=== PATIENT | male | born 1955 | race Two or more races ===

== ENCOUNTER 2021-05-27 18:11 | Inpatient (IN) | payer MEDICARE, MEDICAID ==
[~2021-05-27] VITALS: Ht 175.3 cm; Wt 67.2 kg
[2021-05-27 19:23] LABS: Basophils # (auto) 0 10 ^3/uL (0-0.2); Basophils % (auto) 0.4 % (0.0-2.0); Eosinophils # (auto) 0.3 10 ^3/uL (0-0.8); Eosinophils % (auto) 3.4 % (0.0-7.0); Hemoglobin 10.9 g/dL (13.5-17.5); Lymphocytes # (auto) 2.7 10 ^3/uL (0.4-5.4); Mean Corpuscular Hemoglobin 35.7 pg (28.0-32.0); Monocytes % (auto) 10.8 % (0.0-12.0); Neutrophils # (auto) 4.9 10 ^3/uL (1.6-8.6); Neutrophils % (auto) 55.4 % (37.0-80.0); Nucleated Red Blood Cells % 0.1 %; Red Blood Cells 3.05 10^6/uL (4.5-5.90); Red Cell Distribution Width 14.2 % (11.8-14.3); White Blood Cell 8.9 10^3/uL (4.4-10.8)
[2021-05-27 19:32] LABS: Albumin 2.1 g/dL (3.4-5.0); Calcium 7.5 mg/dL (8.5-10.1); Magnesium 1.9 mg/dL (1.6-2.6); Potassium 3.6 mmol/L (3.5-5.1)
[2021-05-27 19:39] LABS: Bilirubin, Total 0.7 mg/dL (0.2-1.0); Total Protein 4.8 g/dL (6.4-8.2)
[2021-05-28] VITALS (7 sets, daily range): BP systolic 87–130; BP diastolic 47–72
[2021-05-28] MEDS ORDERED: ACETAMINOPHEN 500 MG TAB PO ONE (04:00)
[2021-05-28] MEDS ORDERED: CLINDAMYCIN 600MG IV 50 ML IV ONE (04:00)
[2021-05-28 04:37] LABS: Urine Bacteria NONE SEEN /hpf (None Seen); Urine Blood Negative /uL (Negative); Urine Hyaline Cast FEW /lpf (0 - 2); Urine Mucus FEW (None Seen); Urine Specific Gravity 1.019 (1.001-1.035); Urine WBC 1 /hpf (0 - 3)
[2021-05-28] MEDS ORDERED: NITROGLYCERIN 0.4 MG SL TAB SL PRN (05:45)
[2021-05-28] MEDS ORDERED: DOCUSATE SOD 100 MG CAP PO PRN (05:45)
[2021-05-28] MEDS ORDERED: MORPHINE SULFATE INJECTION 2 MG/ML SYRG IV PRN (05:45)
[2021-05-28] MEDS ORDERED: ONDANSETRON HCL 4 MG/2 ML VIAL IV PRN (05:45)
[2021-05-28] MEDS ORDERED: DEXTROSE (50%) 50ML SYRG IV PRN (05:45)
[2021-05-28] MEDS ORDERED: ACETAMINOPHEN 325 MG TAB PO PRN (05:45)
[2021-05-28] MEDS: SODIUM CHLOR 0.9% PF (SALINE LOCK) 10ML VIAL/SYR IV SCH ×4 (06:13→22:12)
[2021-05-28] MEDS: CLINDAMYCIN 600MG IV 50 ML IV SCH ×3 (06:13→22:08)
[2021-05-28] MEDS: HYDROcodone-ACET 5/325MG TAB PO PRN ×2 (06:13→11:32)
[2021-05-28] MEDS: ACCU-CHEK COMFORT CURVE STRIP VI SCH ×4 (07:00→22:00)
[2021-05-28] MEDS: InsuLIN REG 1unit/0.01ml Soln (100units/ml) SC SCH ×3 (07:00→16:58)
[2021-05-28 08:29] LABS: Basophils # (auto) 0 10 ^3/uL (0-0.2); Basophils % (auto) 0.6 % (0.0-2.0); Eosinophils # (auto) 0.3 10 ^3/uL (0-0.8); Eosinophils % (auto) 4.3 % (0.0-7.0); Hemoglobin 10.8 g/dL (13.5-17.5); Lymphocytes # (auto) 2.1 10 ^3/uL (0.4-5.4); Lymphocytes % (auto) 29.1 % (10.0-50.0); Mean Corpuscular Hemoglobin 35.2 pg (28.0-32.0); Mean Corpuscular Hgb Conc. 33.9 g/dL (32.0-36.0); Monocytes # (auto) 0.7 10 ^3/uL (0-1.3); Monocytes % (auto) 9.8 % (0.0-12.0); Neutrophils # (auto) 4.1 10 ^3/uL (1.6-8.6); Neutrophils % (auto) 56.2 % (37.0-80.0); Red Blood Cells 3.07 10^6/uL (4.5-5.90); Red Cell Distribution Width 14.3 % (11.8-14.3); White Blood Cell 7.4 10^3/uL (4.4-10.8)
[2021-05-28 08:43] LABS: INR 1.37 (0.9-1.15); Partial Thromboplastin Time 31.2 sec (23.6-33.0)
[2021-05-28 08:44] LABS: Calcium 7.4 mg/dL (8.5-10.1); Potassium 4.1 mmol/L (3.5-5.1)
[2021-05-28 08:47] LABS: BUN/Creatinine Ratio 8.6; Bilirubin, Total 1.1 mg/dL (0.2-1.0); Total Protein 4.5 g/dL (6.4-8.2)
[2021-05-28] MEDS ORDERED: OME20GT PO (08:57)
[2021-05-28] MEDS ORDERED: GABA-339 PO (08:57)
[2021-05-28] MEDS ORDERED: METO25TA93 PO (08:57)
[2021-05-28] MEDS ORDERED: SIMV-13 PO (08:57)
[2021-05-28] MEDS ORDERED: CHOL20007 PO (08:57)
[2021-05-28] MEDS ORDERED: ONDA-144 PO (08:57)
[2021-05-28] MEDS ORDERED: METF-370 PO (08:57)
[2021-05-28] MEDS ORDERED: FURO1TAB33 PO (08:57)
[2021-05-28] MEDS ORDERED: ALBUAER3 IN (08:57)
[2021-05-28] MEDS ORDERED: LIDO2SOL18 TOP (08:57)
[2021-05-28] MEDS ORDERED: HYDR-4833 PO (08:57)
[2021-05-28] MEDS: HEPARIN SODIUM (PORCINE) 5000 UNITS/ML 1ML VIAL SC SCH ×2 (09:35→22:11)
[2021-05-28] MEDS ORDERED: ZINC SULFATE 220mg CAP or TAB PO SCH (10:00)
[2021-05-28] MEDS ORDERED: ASCORBIC ACID 500 MG TAB PO SCH (10:00)
[2021-05-28] MEDS ORDERED: FAMOTIDINE (10MG/ML) 2ML VL IV SCH (10:00)
[2021-05-28] MEDS ORDERED: MULTIPLE VITAMIN TAB PO SCH (10:00)
[2021-05-28] MEDS ORDERED: cefTRIAXone SOD 1,000 MG VL IV ONE (12:45)
[2021-05-28] MEDS ORDERED: HYDROcodone-ACET 5/325MG TAB PO PRN (13:15)
[2021-05-28] MEDS ORDERED: ALBUTEROL SULF HFA 90MCG INH 200DOSE IN PRN ×2 (13:15→14:00)
[2021-05-28] MEDS ORDERED: diphenhdrAMINE HCL 25 MG CAP PO PRN (13:30)
[2021-05-28] MEDS ORDERED: ALBUTEROL SULF 2.5 MG/0.5ML(0.5%) NEB SOLN NEB PRN (14:00)
[2021-05-28] MEDS ORDERED: cefTRIAXone 1GM/50ML D5W 50 ML IV ONE (14:15)
[2021-05-28] MEDS ORDERED: ONDANSETRON ODT 4 MG TAB PO PRN (15:00)
[2021-05-28] MEDS ORDERED: SODIUM CHLORIDE 0.9% 1,000 ML IV ONE (16:30)
[2021-05-28] MEDS: SODIUM CHLORIDE 0.9% 1,000 ML IV SCH ×2 (18:23→22:09)
[2021-05-28] MEDS ORDERED: InsuLIN REG 1unit/0.01ml Soln (100units/ml) SC SCH (22:00)
[2021-05-28] MEDS ORDERED: ATORVASTATIN 20 MG TAB PO SCH (22:00)
[2021-05-29] MEDS: SODIUM CHLORIDE 0.9% 1,000 ML IV SCH (04:30)
[2021-05-29 05:00] VITALS: BP 148/55
[2021-05-29] MEDS: SODIUM CHLOR 0.9% PF (SALINE LOCK) 10ML VIAL/SYR IV SCH (05:25)
[2021-05-29] MEDS: CLINDAMYCIN 600MG IV 50 ML IV SCH (05:30)
[2021-05-29] MEDS: ACCU-CHEK COMFORT CURVE STRIP VI SCH ×2 (05:37→11:56)
[2021-05-29 05:54] LABS: Chloride 115 mmol/L (98-107); Potassium 3.8 mmol/L (3.5-5.1); Sodium 143 mmol/L (136-145)
[2021-05-29 05:58] LABS: Alanine Aminotransferase 21 U/L (16-61); Albumin 1.5 g/dL (3.4-5.0); Anion Gap 8 (5-15); Aspartate Aminotransferase 37 U/L (15-37); BUN/Creatinine Ratio 7.8; Blood Urea Nitrogen 4 mg/dL (7-18); Carbon Dioxide 20 mmol/L (21-32); GFR African American 210 mL/min; GFR Non-African American 173 mL/min; Glucose 115 mg/dL (74-106)
[2021-05-29 06:01] LABS: Alkaline Phosphatase 104 U/L (45-117); Bilirubin, Total 0.8 mg/dL (0.2-1.0); Total Protein 3.7 g/dL (6.4-8.2)
[2021-05-29 08:57] VITALS: BP 108/64
[2021-05-29] MEDS ORDERED: cefTRIAXone 1GM/50ML D5W 50 ML IV SCH (09:00)
[2021-05-29] MEDS: HEPARIN SODIUM (PORCINE) 5000 UNITS/ML 1ML VIAL SC SCH (09:52)
[2021-05-29] MEDS ORDERED: GABAPENTIN 300 MG CAP PO SCH (10:00)
[2021-05-29] MEDS ORDERED: cefTRIAXone SOD 1,000 MG VL IV ONE (10:00)
[2021-05-29] MEDS ORDERED: CHOLECALCIFEROL (VITD3) 2,000 UNIT CAP/TAB PO SCH (10:00)
[2021-05-29] MEDS ORDERED: METOPROLOL SUCCINATE XL 50 MG TAB PO SCH (10:00)
[2021-05-29] MEDS ORDERED: FUROSEMIDE 20 MG TAB PO SCH (10:00)
[2021-05-29] MEDS ORDERED: PANTOPRAZOLE 40 MG TAB PO SCH (10:00)
[2021-05-29] MEDS ORDERED: metFORMIN HYDROCHLORIDE 500 MG TAB PO SCH (10:00)
[2021-05-29 10:13] VITALS: BP 108/64
== END 2021-05-29 13:13 | disposition home or self-care (01) | DRG 383 ==
LOC: ER 18:11 → EDUNIT# 18:11 → EDBD 18:11 → OVERFLOW 05-28 05:33 → CENTRAL 05-28 06:47
PROVIDERS: ADMIT Nurse Practitioner Family; ATTEND Family Medicine
DX: L03.113 Cellulitis of right upper limb (principal); E43 Unspecified severe protein-calorie malnutrition; R64 Cachexia; E88.09 Other disorders of plasma-protein metabolism, not elsewhere classified; E11.51 Type 2 diabetes mellitus with diabetic peripheral angiopathy without gangrene; E11.65 Type 2 diabetes mellitus with hyperglycemia; Z20.822 Contact with and (suspected) exposure to COVID-19; J44.9 Chronic obstructive pulmonary disease, unspecified; Z68.21 Body mass index [BMI] 21.0-21.9, adult; L03.114 Cellulitis of left upper limb; Z95.0 Presence of cardiac pacemaker; Z88.0 Allergy status to penicillin
CPT/HCPCS: 36415; 71045; 80053; 81001; 82962; 83605; 83735; 83880; 84484; 85025; 85610; 85652; 85730; 86141; 87040; 87426; 93005; 93970; 96365; G0378; J0696; J1815; J3490